=== PATIENT | male | born 1970 | race Asian ===

== ENCOUNTER 2020-07-05 10:56 | Outpatient (RCR) | payer OTHER | END 2020-09-21 | disposition home or self-care (01) | LOC: WSOH | DX: S46.811D Strain of other muscles, fascia and tendons at shoulder and upper arm level, right arm, subsequent encounter (principal); M70.811 Other soft tissue disorders related to use, overuse and pressure, right shoulder; Z87.81 Personal history of (healed) traumatic fracture; Z98.890 Other specified postprocedural states; Y99.0 Civilian activity done for income or pay ==